=== PATIENT | female | born 1975 | race Two or more races ===

== ENCOUNTER 2017-10-19 22:07 | Emergency (ER) | payer SELFPAY ==
[2017-10-19] MEDS: NAPROXEN 500 MG TABLET PO (23:05)
[2017-10-19] MEDS: DIPHTH,PERTUSS(ACELL),TET TOX 0.5 ML DISP.SYRIN. VAX IM (23:06)
== END 2017-10-19 23:07 | disposition home or self-care (01) ==
LOC: ER 22:07
DX: S91.332A Puncture wound without foreign body, left foot, initial encounter (principal); E11.9 Type 2 diabetes mellitus without complications; Z90.710 Acquired absence of both cervix and uterus; W45.0XXA Nail entering through skin, initial encounter; Y93.89 Activity, other specified; Y92.89 Other specified places as the place of occurrence of the external cause; Y99.8 Other external cause status
CPT/HCPCS: 90471; 90715; 99283-25